=== PATIENT | male | born 1970 | race Caucasian/White ===

== ENCOUNTER 2017-06-19 18:47 | Emergency (ER) | payer BC ==
[2017-06-19 19:02] VITALS: BP 151/104
--- NOTE | 2017-06-19 19:28 | RAD ---
INDICATION: Left ankle injury COMPARISON: None TECHNIQUE: AP, lateral, and oblique views were obtained. FINDINGS: There is no acute fracture. There are small heel spurs. The ankle mortise and soft tissues are intact. IMPRESSION: NO ACUTE BONY FINDINGS.
--- NOTE | 2017-06-19 19:29 | RAD ---
INDICATION: Right lower leg injury COMPARISON: None TECHNIQUE: AP and lateral views were obtained. FINDINGS: The bony structures, joint spaces, and soft tissues are normal for age. IMPRESSION: NEGATIVE EXAMINATION
--- NOTE | 2017-06-19 21:22 | UC ---
Simin Marquez Nilda, scribed for Marek Elias MD on 06/19/17 at 1942 . Lower Extremity/Ankle HPI - HPI Summary HPI Summary: This patient is a 46 year old M presenting to [facility] [place] accompanied by with a chief complaint of sudden onset constant RLE pain (ache), abrasions, and ecchymosis s/p falling off a ladder a few hours ago. Pt was cleaning his chimney when his ladder tipped and his right leg was caught in one of the rungs. Pt states that other than his right leg, he did not sustain any other injuries from the fall. The patient rates the pain 5/10 in severity. Symptoms aggravated by ambulation and alleviated by rest. - History of Current Complaint Stated Complaint: RIGHT LEG Time Seen by Provider: 06/19/17 18:54 Hx Obtained From: Patient Onset/Duration: Sudden Onset, Lasting Hours, Still Present Severity Currently: Moderate Pain Intensity: 5 Pain Scale Used: 0-10 Numeric Aggravating Factor(s): Ambulation Alleviating Factor(s): Rest - Allergies/Home Medications Allergies/Adverse Reactions: Allergies Allergy/AdvReac Type Severity Reaction Status Date / Time No Known Allergies Allergy Verified 06/19/17 19:02 Home Medications: Home Medications Cetirizine* [ZyrTEC 10 MG TAB*] 10 mg PO DAILY 06/19/17 [History Confirmed 06/19] Ranitidine HCl [Zantac 150 Maximum Streng] 150 mg PO DAILY 06/19/17 [History Confirmed 06/19/17] PMH/Surg Hx/FS Hx/Imm Hx Previously Healthy: Yes - Family History Known Family History: Positive: Hypertension, Diabetes - Social History Occupation: Employed Full-time Lives: With Family Alcohol Use: Occasionally Substance Use Type: Excessive Caffeine Smoking Status (MU): Current Some Day Smoker Have You Smoked in the Last Year: Yes Household Exposure Type: Cigarettes Review of Systems Skin: Bruising, Other - abasions to RLE Musculoskeletal: Other: - RLE pain; negative other injuries All Other Systems Reviewed And Are Negative: Yes Physical Exam Triage Information Reviewed: Yes Vital Signs: Initial Vital Signs Temp 98 F 06/19/17 18:59 Pulse 85 06/19/17 18:59 Resp 20 06/19/17 18:59 BP 151/104 06/19/17 18:59 Pulse Ox 100 06/19/17 18:59 Vital Signs Reviewed: Yes - Additional Comments General: well-appearing, no pain distress Skin: warm, color reflects adequate perfusion, dry Head: normal Eyes: EOMI, KAREN ENT: normal Neck: supple, nontender Respiratory: CTA, breath sounds present Cardiovascular: RRR Abdomen: soft, nontender Bowel: present Musculoskeletal: Right leg: ecchymosis and abrasions in right mid-noel down to ankle. Mild tenderness to ankle. Good pulse. Good capillary refill. Calf non- tender and non-swollen. Neurological: normal, sensory/motor intact, A&O x3 Psychological: affect/mood appropriate Diagnostics - Radiology LLE XR Radiology Interpretation Completed By: Radiologist - LLE XR, per radiologist, reveals negative exam. Dr. Elias reviewed this report. Ankle XR Radiology Interpretation Completed By: Radiologist - Ankle XR, per radiologist, reveals no acute bony findings. Dr. Elias reviewed this report. Re-Evaluation - Re-Evaluation First Eval Re-Evaluation Time: 19:47 Comment: Reviewed imaging results with patient and discussed dispo plan. Lower Extremity Course/Dx - Course Course Of Treatment: Ankle XR, per radiologist, reveals no acute bony findings. Dr. Elias reviewed this report. LLE XR, per radiologist, reveals negative exam. Dr. Elias reviewed this report. Allergies noted. Medications reviewed. BP noted and advised to follow up with PCP. - Differential Dx/Diagnosis Provider Diagnoses: CONTUSION RIGHT NOEL. RIGHT ANKLE SPRAIN. Elevated blood pressure without history of hypertension. Discharge - Discharge Plan Condition: Stable Disposition: HOME Prescriptions: HYDROcodone/ACETAMIN 5-325 MG* [[place] 5-325 TAB*] 1 tab PO Q4H PRN #15 tab MDD 6 PRN Reason: Pain Patient Education Materials: Ankle Sprain (ED), Crutch Instructions (ED), Contusion in Adults (ED) Forms: *Work Release Referrals: No Primary Care Phys,NOPCP [Primary Care Provider] - Additional Instructions: FOLLOW UP WITH YOUR DOCTOR. GET RECHECKED FOR ANY WORSENING OF YOUR CONDITION OR QUESTIONS OR CONCERNS. Your blood pressure was elevated during todays visit; please follow up with your primary care provider within a week for further evaluation. The documentation as recorded by the Simin paredes Nilda accurately reflects the service I personally performed and the decisions made by me, Marek Elias MD.
== END 2017-06-19 20:29 | disposition home or self-care (01) ==
LOC: UCEAST 18:47
DX: S80.11XA Contusion of right lower leg, initial encounter (principal); S93.401A Sprain of unspecified ligament of right ankle, initial encounter; W11.XXXA Fall on and from ladder, initial encounter; Y93.E9 Activity, other interior property and clothing maintenance; Y92.008 Other place in unspecified non-institutional (private) residence as the place of occurrence of the external cause; Z72.0 Tobacco use
CPT/HCPCS: 99213; G0463

== ENCOUNTER 2021-10-24 17:57 | Inpatient (IN) ==
[2021-10-24 18:26] LABS: ABS Basophils 0.1 10^3/ul (0-0.2); ABS Eosinophils 0.3 10^3/ul (0-0.6); ABS Lymphocytes 2.3 10^3/ul (1.0-4.8); ABS Monocytes 0.9 10^3/ul (0-0.8); ABS Neutrophils 5.9 10^3/ul (1.5-7.7); Eosinophil % 3.4 %; Hematocrit 49 % (42-52); Hemoglobin 16.7 g/dL (14.0-18.0); Lymphocyte % 23.9 %; Mean Corpuscular HGB Conc 34 g/dL (31-36); Mean Corpuscular Hemoglobin 30 pg (27-31); Mean Corpuscular Volume 87 fL (80-94); Mean Platelet Volume 7.5 fL (7.4-10.4); Platelet Count 274 10^3/uL (150-450); Red Blood Count 5.63 10^6 /uL (4.18-5.48); Red Cell Distribution Width 14 % (10-15); White Blood Count 9.5 10^3/uL (3.5-10.8)
[2021-10-24 18:50] LABS: Albumin 4.3 g/dL (3.2-5.2); Albumin/Globulin Ratio 1.6 (1-3); Calcium 9.7 mg/dL (8.6-10.3); Globulin 2.7 g/dL (2-4); Total Bilirubin 0.6 mg/dL (0.2-1.0); eGFR CKD-EPI 56.8 (>60)
[2021-10-24 19:57] LABS: High Sensitivity Troponin 1 Hr 36 pg/mL (<20)
[2021-10-24] MEDS ORDERED: Nitro 2% OINT (Nitroglycerin) 1 INCH/PAK TOPICAL ONE ×3 (20:17→22:25)
[2021-10-24 21:33] LABS: Magnesium 2.1 mg/dL (1.9-2.7)
[2021-10-24] MEDS ORDERED: Heparin DRIP 25,000 UNITS BAG 25,000 UNITS/500 ML BAG IV SCH (22:15)
[2021-10-24] MEDS ORDERED: Nicotine PATCH 21 MG/24 HR PATCH TRANSDERM PRN (22:26)
[2021-10-24] MEDS ORDERED: Nicotine Lozenge mini 4 MG LOZNG.MINI MT PRN (22:26)
[2021-10-24] MEDS ORDERED: Nicotine GUM 4MG FRUIT FLAVOR PO PRN (22:26)
[2021-10-24] MEDS ORDERED: Heparin 5000 UNITS/ML 1 mL VIAL IV SCH (23:00)
[2021-10-24] MEDS ORDERED: Ondansetron 4 mg VIAL 2 MG/ML 2 ml VIAL IV PRN (23:26)
[2021-10-24 23:28] LABS: ABS Basophils 0.1 10^3/ul (0-0.2); ABS Eosinophils 0.3 10^3/ul (0-0.6); ABS Lymphocytes 2.8 10^3/ul (1.0-4.8); ABS Monocytes 0.8 10^3/ul (0-0.8); ABS Neutrophils 5.7 10^3/ul (1.5-7.7); Eosinophil % 3.2 %; Hematocrit 47 % (42-52); Hemoglobin 15.8 g/dL (14.0-18.0); Lymphocyte % 28.5 %; Mean Corpuscular HGB Conc 34 g/dL (31-36); Mean Corpuscular Hemoglobin 29 pg (27-31); Mean Corpuscular Volume 86 fL (80-94); Mean Platelet Volume 7.5 fL (7.4-10.4); Nucleated Red Blood Cells % 0.1; Platelet Count 268 10^3/uL (150-450); Red Blood Count 5.42 10^6 /uL (4.18-5.48); Red Cell Distribution Width 14 % (10-15); White Blood Count 9.7 10^3/uL (3.5-10.8)
[2021-10-25 00:07] LABS: eGFR CKD-EPI 71.5 (>60)
[2021-10-25 06:28] LABS: ABS Basophils 0.1 10^3/ul (0-0.2); ABS Eosinophils 0.3 10^3/ul (0-0.6); ABS Lymphocytes 2.1 10^3/ul (1.0-4.8); ABS Monocytes 0.6 10^3/ul (0-0.8); ABS Neutrophils 3.6 10^3/ul (1.5-7.7); Eosinophil % 4.3 %; Hematocrit 43 % (42-52); Hemoglobin 14.8 g/dL (14.0-18.0); Lymphocyte % 31.6 %; Mean Corpuscular HGB Conc 35 g/dL (31-36); Mean Corpuscular Hemoglobin 30 pg (27-31); Mean Corpuscular Volume 86 fL (80-94); Mean Platelet Volume 7.6 fL (7.4-10.4); Nucleated Red Blood Cells % 0.1; Platelet Count 234 10^3/uL (150-450); Red Cell Distribution Width 14 % (10-15); White Blood Count 6.8 10^3/uL (3.5-10.8)
[2021-10-25 07:01] LABS: HDL Cholesterol 25.7 mg/dL
[2021-10-25 07:54] LABS: Calcium 8.9 mg/dL (8.6-10.3); Potassium 4.1 mmol/L (3.5-5.0); eGFR CKD-EPI 75.9 (>60)
[2021-10-25 08:56] LABS: Magnesium 2.1 mg/dL (1.9-2.7)
[2021-10-25] MEDS ORDERED: NS 0.9% 1000 ml BAG 1,000 ML IV SCH ×2 (09:00→15:30)
[2021-10-25] MEDS ORDERED: Perflutren Lipid Microsphere 3 ML VIAL ONE (09:38)
[2021-10-25 10:07] LABS: Erythrocyte Sed Rate 7 mm/Hr (0-19)
[2021-10-25] MEDS ORDERED: Midazolam 5 mg/5 ml VIAL 1 mg/ml 5 ml VIAL (5 mg) ONE (12:54)
[2021-10-25] MEDS ORDERED: fentaNYL 100 mcg/2 ml 50 MCG/ML VIAL ONE (12:54)
[2021-10-25] MEDS ORDERED: Heparin 1,000 UNIT/ML 10 ml (10,000 UNITS) CATHLAB/DIALYSIS ONE (12:54)
[2021-10-25] MEDS ORDERED: VERAPAMIL 2.5 MG/ML 2 ML VIAL ** 5 mg/2 ml ONE (12:54)
[2021-10-25] MEDS ORDERED: nitroGLYCERIN DRIP 25,000 MCG/250 ML BTL ONE (12:55)
[2021-10-25] MEDS ORDERED: Heparin 2 UNITS/ML 1000 mls 2,000 ML IV ONE (12:55)
[2021-10-25] MEDS ORDERED: Iohexol 350 (CONTRAST) 200 ML MDV IV ONE ×2 (12:55→12:57)
[2021-10-25] MEDS ORDERED: Lidocaine 1% MPF 5 ML VIAL ONE (12:57)
[2021-10-25] MEDS ORDERED: CMC: Pravastatin 20 mg TAB (NF) PO SCH (17:00)
[2021-10-25 18:51] VITALS: BP 121/82
== END 2021-10-25 18:30 | disposition home or self-care (01) | DRG 190 ==
LOC: ED 17:57 → EDHOLD 23:26 → SUATTDRO 23:26 → ICU 10-25 00:39
PROVIDERS: ADMIT Internal Medicine; ATTEND Internal Medicine Critical Care Medicine